=== PATIENT | male | born 1970 | race Caucasian/White ===

== ENCOUNTER 2016-04-17 01:25 | Inpatient (IN) | payer BC, OTHER ==
[2016-04-17 01:43] VITALS: BMI 30.2
[2016-04-17] MEDS ORDERED: dilTIAZem HCL 50 MG/10 ML - 10 ML VIAL ONE (01:52)
[2016-04-17] MEDS ORDERED: SODIUM CHLORIDE 0.9% 500 ML INFUS.BAG IV ONE ×2 (01:54→03:24)
[2016-04-17] MEDS ORDERED: dilTIAZem HCL 50 MG/10 ML - 10 ML VIAL IVPUSH ONE ×4 (01:54→13:30)
--- NOTE | 2016-04-17 01:54 | PDOC ---
History of Present Illness - General History Source: Patient - History of Present Illness Initial Comments: 04/17/16 03:35 The patient is a 45 year old male with a PMHx of HTN, HLD who presents to the ED with an irregular heart beat and chest pain tonight. reports the patient was drinking alcohol and ate pasta and meatballs. Patient woke up about an hour ago with palpitations. Patient reports that he has been in A-Fib in and out, but goes out of it easily. He reports an episode of vertigo last week. states he has had difficulty breathing lately. PCP: Dr. Subhash Aden <Bibi Adams - Last Filed: 04/17/16 05:07> <Fina Connell - Last Filed: 04/19/16 16:47> - General Chief Complaint: Irregular Heart Beat Stated Complaint: CHEST PAIN Time Seen by Provider: 04/17/16 01:49 Past History <Bibi Adams - Last Filed: 04/17/16 05:07> - Psycho/Social/Smoking Cessation Hx Suicidal Ideation: No Smoking History: Unknown if ever smoked <Fina Connell - Last Filed: 04/19/16 16:47> - Past Medical History Allergies/Adverse Reactions: Allergies Allergy/AdvReac Type Severity Reaction Status Date / Time No Known Allergies Allergy Verified 09/18/15 10:18 Home Medications: Ambulatory Orders Quinapril HCl [Accupril -] 20 mg PO DAILY 09/01/12 Rosuvastatin Calcium [Crestor] 10 mg PO HS 09/01/12 [place]-3 Acid Ethyl Esters [Lovaza -] 2,000 mg PO BID 02/27/14 Omeprazole 40 mg PO DAILY 04/17/16 Acetaminophen [Tylenol .Regular Strength -] 650 mg PO Q4H PRN #0 tablet Apixaban [Eliquis -] 5 mg PO BID #60 tablet 04/19/16 Diltiazem Cd [Cardizem Cd -] 180 mg PO DAILY #30 cap.cd.24h 04/19/16 Prednisone [Deltasone -] 20 mg PO DAILY #6 tablet 04/19/16 Review of Systems - Review of Systems Comments:: 04/17/16 03:35 GENERAL/CONSTITUTIONAL: No fever or chills. No weakness. HEAD, EYES, EARS, NOSE AND THROAT: No change in vision. No ear pain or discharge. No sore throat. CARDIOVASCULAR: + chest pain, shortness of breath, palpitations. RESPIRATORY: No cough, wheezing, or hemoptysis. GASTROINTESTINAL: No nausea, vomiting, diarrhea or constipation. GENITOURINARY: No dysuria, frequency, or change in urination. MUSCULOSKELETAL: No joint or muscle swelling or pain. No neck or back pain. SKIN: No rash NEUROLOGIC: + vertigo. No headache, loss of consciousness, or change in strength /sensation. ENDOCRINE: No increased thirst. No abnormal weight change. HEMATOLOGIC/LYMPHATIC: No anemia, easy bleeding, or history of blood clots. ALLERGIC/IMMUNOLOGIC: No hives or skin allergy. <Bibi Adams - Last Filed: 04/17/16 05:07> *Physical Exam - Vital Signs Last Vital Signs Temp Pulse Resp BP Pulse Ox 97.3 F L 57 L 17 123/99 98 04/17/16 01:41 04/17/16 01:41 04/17/16 01:41 04/17/16 01:41 04/17/16 01:41 - Physical Exam Comments: 04/17/16 03:36 GENERAL: Awake, alert, and fully oriented, in no acute distress HEAD: No signs of trauma EYES: PERRLA, EOMI, sclera anicteric, conjunctiva clear ENT: Auricles normal inspection, hearing grossly normal, nares patent, oropharynx clear without exudates. Moist mucosa NECK: Normal ROM, supple, no lymphadenopathy, JVD, or masses LUNGS: Breath sounds equal, clear to auscultation bilaterally. No wheezes, and no crackles HEART: irregularly irregular rate and rhythm, normal S1 and S2, no murmurs, rubs or gallops ABDOMEN: Soft, nontender, normoactive bowel sounds. No guarding, no rebound. No masses EXTREMITIES: Normal range of motion, no edema. No clubbing or cyanosis. No cords, erythema, or tenderness NEUROLOGICAL: Cranial nerves II through XII grossly intact. Normal speech, normal gait SKIN: Warm, Dry, normal turgor, no rashes or lesions noted. <Bibi Adams - Last Filed: 04/17/16 05:07> - Vital Signs Last Vital Signs Temp Pulse Resp BP Pulse Ox 97.3 F L 57 L 17 123/99 98 04/17/16 01:41 04/17/16 01:41 04/17/16 01:41 04/17/16 01:41 04/17/16 01:41 <Fina Connell - Last Filed: 04/19/16 16:47> ED Treatment Course - LABORATORY CBC & Chemistry Diagram: 04/17/16 02:00 04/17/16 02:00 - ADDITIONAL ORDERS Additional order review: Laboratory Results 04/17/16 04/17/16 04/17/16 02:00 02:00 02:00 INR 0.95 Sodium 143 Potassium 3.6 Chloride 107 Carbon Dioxide 20 L Anion Gap 16 BUN 21 H Creatinine 1.5 H Creat Clearance w eGFR 50.84 Random Glucose 123 H Calcium 8.9 Total Bilirubin 0.6 AST 34 ALT 89 H Alkaline Phosphatase 74 Total Protein 7.5 Albumin 4.0 Lipase 139 Alcohol, Quantitative 39.4 H* 04/17/16 02:00 RBC 5.41 MCV 89.1 MCHC 34.5 RDW 13.4 MPV 9.1 Neutrophils % 61.8 Lymphocytes % 25.1 Monocytes % 10.1 Eosinophils % 2.0 Basophils % 1.0 <Bibi Adams - Last Filed: 04/17/16 05:07> - LABORATORY CBC & Chemistry Diagram: 04/18/16 05:38 04/18/16 05:38 <Fina Connell - Last Filed: 04/19/16 16:47> Medical Decision Making - Medical Decision Making 04/19/16 16:42 Pt comes with rapid afib. states that he was drinking heavily (however his blood alcohol level is 39 in the ER) and she states that the binge drinking sometimes starts his afib. He has had afib once a few months ago; at that time, he states that simple meds in the ER turned him around, and he went back into sinus rhythm. Pt and his tell me that he has not had an episode of afib since that time, however, he has had episodes of dizziness and vertigo. Pt is not responding to hydration and IV pushes of diltiazem. He was given an oral dose of dilt and he was admitted to his PMDs service. Dr. Toribio is aware of the patient. <Fina Connell - Last Filed: 04/19/16 16:47> *DC/Admit/Observation/Transfer - Attestations Scribe Attestion: 04/17/16 03:36 Documentation prepared by Bibi Adams, acting as medical education manager for Fina Connell MD. <Bibi Adams - Last Filed: 04/17/16 05:07> - Discharge Dispostion Admit: Yes <Fina Connell - Last Filed: 04/19/16 16:47> Diagnosis at time of Disposition: Rapid atrial fibrillation - Discharge Dispostion Disposition: HOME Condition at time of disposition: Improved - Prescriptions - Referrals
[2016-04-17 02:30] LABS: MCH 30.7 pg (25.7-33.7); MCHC 34.5 g/dl (32.0-35.9); MEAN CELL VOLUME 89.1 fl (80-96); MEAN PLT VOLUME 9.1 fl (7.5-11.1); NEUTROPHILS 61.8 % (42.8-82.8); PLATELET COUNT 275 K/MM3 (134-434); RDW 13.4 % (11.9-15.9); WHITE BLOOD COUNT 12.6 K/mm3 (4.0-10.0)
[2016-04-17 02:41] LABS: INR 0.95 (0.82-1.09); PROTHROMBIN TIME (PATIENT) 10.4 SEC (9.98-11.88)
[2016-04-17 02:49] LABS: BILIRUBIN,TOTAL 0.6 mg/dL (0.2-1.0); CALCIUM 8.9 mg/dL (8.5-10.1); CREATININE 1.5 mg/dL (0.7-1.3); TOT PROT 7.5 g/dl (6.4-8.2)
[2016-04-17] MEDS ORDERED: dilTIAZem HCL 60 MG TABLET (FP) ONE (05:10)
[2016-04-17] MEDS ORDERED: dilTIAZem HCL 60 MG TABLET (FP) PO ONE ×2 (05:12→13:30)
[2016-04-17] MEDS ORDERED: ACETAMINOPHEN 325 MG TABLET (FP) PO PRN (08:16)
[2016-04-17] MEDS: SODIUM CHLORIDE 1,000 ML IV SCH (09:06)
[2016-04-17 09:13] LABS: TROPONIN I < 0.02 ng/ml (0.00-0.05)
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
[2016-04-17] MEDS ORDERED: PANTOPRAZOLE 40 MG TABLET (FP) ONE (11:31)
[2016-04-17] MEDS ORDERED: METOPROLOL SUCCINATE 50 MG TAB.SR.24H (FP) ONE (11:31)
[2016-04-17] MEDS ORDERED: dilTIAZem HCL 30 MG TABLET (FP) ONE (11:32)
[2016-04-17] MEDS ORDERED: predniSONE 10 MG TABLET (UD) ONE ×2 (11:32→11:35)
[2016-04-17] MEDS: PANTOPRAZOLE 20 MG TABLET (FP) PO SCH (11:38)
[2016-04-17] MEDS: predniSONE 20 MG TABLET (UD) PO SCH (11:38)
[2016-04-17] MEDS: METOPROLOL SUCCINATE 50 MG TAB.SR.24H (FP) PO SCH (11:38)
[2016-04-17] MEDS: dilTIAZem HCL 30 MG TABLET (FP) PO SCH ×2 (11:39→11:41)
[2016-04-17] MEDS: ROSUVASTATIN CA 5 MG TABLET (FP) PO SCH (13:23)
[2016-04-17] MEDS: APIXABAN 5 MG TABLET PO SCH ×2 (13:23→21:26)
[2016-04-17 14:04] LABS: TROPONIN I < 0.02 ng/ml (0.00-0.05)
[2016-04-17] MEDS: OMEGA-3 ACID ETHYL ESTERS (FATTY-ACIDS) 1 GM CAPSULE (FP) PO SCH (14:30)
--- NOTE | 2016-04-17 14:58 | HP ---
Admitting History and Physical - Primary Care Physician PCP: Subhash Aden - Admission Chief Complaint: I have atrial fibrillation History of Present Illness: Mr Ring is a very pleasant 45 year old male who comes in after having palpitations. He says he was at dinner and was drinking alcohol last night. He has a previous history of having atrial fibrillation with rvr after consumption of alcohol. After having "a few cocktails" last night he developed palpitations. He says he felt his heart racing. He says he often feels his heart race after drinking, but normally it goes away. However this time his heart continued to race so he came in for further evaluation. He has shortness of breath with this, but he has a history of asthma and states this is unchanged. He denies lightheadedness, dizziness, passing out, chest pain, coughing, abdominal pain, nausea, vomiting, diarrhea, constipation, difficulty or pain on urination, or swelling. He received IV diltiazem in the ER which controlled his rate, however he is still feeling palpitations. History Source: Patient Limitations to Obtaining History: No Limitations - Past Medical History Cardiovascular: Yes: AFIB (paroxysmal), HTN, Hyperlipdemia - Past Surgical History Past Surgical History: Yes: None - Smoking History Smoking history: Unknown if ever smoked - Alcohol/Substance Use Hx Alcohol Use: Yes (12-15 drinks per week) History of Substance Use: reports: None - Social History Usual Living Arrangement: Yes: With Spouse ADL: Independent History of Recent Travel: No Home Medications - Allergies Allergies/Adverse Reactions: Allergies Allergy/AdvReac Type Severity Reaction Status Date / Time No Known Allergies Allergy Verified 04/17/16 05:38 - Home Medications Home Medications: Ambulatory Orders Fluticasone/Salmeterol [Advair 250-50 Diskus] 1 each IH BID 04/17/16 [place]-3 Acid Ethyl Esters [Lovaza] 1 gm PO QID 04/17/16 Omeprazole 40 mg PO DAILY 04/17/16 Prednisone [Deltasone -] 40 mg PO DAILY 04/17/16 Quinapril HCl [Accupril -] 20 mg PO DAILY 04/17/16 Rosuvastatin Calcium [Crestor] 10 mg PO DAILY 04/17/16 Family Disease History - Family Disease History Family Disease History: Heart Disease: Mother (CHF) Review of Systems Findings/Remarks: Full review of systems obtained, as per HPI and otherwise negative Physical Examination Vital Signs: Vital Signs Temperature 98.1 F 04/17/16 14:37 Pulse Rate 113 H 04/17/16 14:37 Respiratory Rate 20 04/17/16 14:37 Blood Pressure 115/79 04/17/16 14:37 O2 Sat by Pulse Oximetry (%) 97 04/17/16 11:26 Constitutional: Yes: No Distress, Calm, Obese Eyes: Yes: Conjunctiva Clear, EOM Intact HENT: Yes: Atraumatic, Normocephalic Cardiovascular: Yes: Pulse Irregular. No: Tachycardia, Gallop, Murmur, Rub Respiratory: Yes: Regular, CTA Bilaterally. No: Rales, Rhonchi, Wheezes Gastrointestinal: Yes: Normal Bowel Sounds, Soft. No: Distention, Tenderness Extremities: Yes: WNL Edema: No Labs: Laboratory Results - last 24 hr 04/17/16 04/17/16 04/17/16 02:00 02:00 02:00 WBC 12.6 H RBC 5.41 Hgb 16.6 Hct 48.1 MCV 89.1 MCHC 34.5 RDW 13.4 Plt Count 275 MPV 9.1 Neutrophils % 61.8 Lymphocytes % 25.1 Monocytes % 10.1 Eosinophils % 2.0 Basophils % 1.0 INR 0.95 Sodium 143 Potassium 3.6 Chloride 107 Carbon Dioxide 20 L Anion Gap 16 BUN 21 H Creatinine 1.5 H Creat Clearance w eGFR 50.84 Random Glucose 123 H Calcium 8.9 Total Bilirubin 0.6 AST 34 ALT 89 H Alkaline Phosphatase 74 Creatine Kinase Creatine Kinase Index CK-MB (CK-2) CK-MB (CK-2) Rel Index Troponin I Total Protein 7.5 Albumin 4.0 Lipase 139 Alcohol, Quantitative 04/17/16 04/17/16 04/17/16 02:00 03:20 03:20 WBC RBC Hgb Hct MCV MCHC RDW Plt Count MPV Neutrophils % Lymphocytes % Monocytes % Eosinophils % Basophils % INR Sodium Potassium Chloride Carbon Dioxide Anion Gap BUN Creatinine Creat Clearance w eGFR Random Glucose Calcium Total Bilirubin AST ALT Alkaline Phosphatase Creatine Kinase 255 Creatine Kinase Index 1.9 CK-MB (CK-2) 4.733 H CK-MB (CK-2) Rel Index Cancelled Troponin I < 0.02 Total Protein Albumin Lipase Alcohol, Quantitative 39.4 H* 04/17/16 13:25 WBC RBC Hgb Hct MCV MCHC RDW Plt Count MPV Neutrophils % Lymphocytes % Monocytes % Eosinophils % Basophils % INR Sodium Potassium Chloride Carbon Dioxide Anion Gap BUN Creatinine Creat Clearance w eGFR Random Glucose Calcium Total Bilirubin AST ALT Alkaline Phosphatase Creatine Kinase 163 D Creatine Kinase Index CK-MB (CK-2) CK-MB (CK-2) Rel Index Troponin I < 0.02 Total Protein Albumin Lipase Alcohol, Quantitative Imaging - Results Chest X-ray: Report Reviewed, Image Reviewed EKG: Image Reviewed Problem List - Problems (1) Atrial fibrillation with RVR Assessment/Plan: -patient rate controlled, but still symptomatic -cardiology saw patient in consultation -started on diltiazem -started on toprol -anticoagulation with eliquis -? possible cardioversion tomorrow Code(s): I48.91 - UNSPECIFIED ATRIAL FIBRILLATION (2) HTN (hypertension) Assessment/Plan: -will stop quinapril -placed on metoprolol and diltiazem Code(s): I10 - ESSENTIAL (PRIMARY) HYPERTENSION (3) HLD (hyperlipidemia) Assessment/Plan: -continue lovaza Code(s): E78.5 - HYPERLIPIDEMIA, UNSPECIFIED (4) Asthma Assessment/Plan: -continue prednisone Code(s): J45.909 - UNSPECIFIED ASTHMA, UNCOMPLICATED
[2016-04-17] MEDS ORDERED: METOPROLOL SUCCINATE 50 MG TAB.SR.24H (FP) PO STA (16:03)
[2016-04-17] MEDS: dilTIAZem HCL 60 MG TABLET (FP) PO SCH (21:26)
[2016-04-18 06:29] LABS: BASOPHIL 0.1 % (0-2.0); EOSINOPHIL 0.8 % (0-4.5); MCH 30.8 pg (25.7-33.7); MCHC 34.4 g/dl (32.0-35.9); MEAN CELL VOLUME 89.6 fl (80-96); MEAN PLT VOLUME 8.6 fl (7.5-11.1); NEUTROPHILS 70.6 % (42.8-82.8); PLATELET COUNT 220 K/MM3 (134-434); RDW 13.5 % (11.9-15.9); WHITE BLOOD COUNT 14.5 K/mm3 (4.0-10.0)
[2016-04-18] MEDS: dilTIAZem HCL 60 MG TABLET (FP) PO SCH ×3 (06:41→21:15)
[2016-04-18 06:58] LABS: CREATININE 1.3 mg/dL (0.7-1.3); MAGNESIUM 2.4 mg/dL (1.8-2.4); PHOSPHOROUS 3.4 mg/dL (2.5-4.9)
[2016-04-18] MEDS: SODIUM CHLORIDE 1,000 ML IV SCH (09:00)
--- NOTE | 2016-04-18 09:21 | PN ---
Progress Note, Physician Chief Complaint: afob History of Present Illness: no more palpitations this am; no sob, cp, presyncope - Current Medication List Current Medications: Active Medications Acetaminophen (Tylenol -) 650 mg PO Q4H PRN PRN Reason: FEVER OR PAIN Apixaban (Eliquis -) 5 mg PO BID [facility] Last Admin: 04/17/16 21:26 Dose: 5 mg Diltiazem HCl (Cardizem -) 60 mg PO TID [facility] Last Admin: 04/18/16 06:41 Dose: 60 mg Sodium Chloride (Normal Saline -) 1,000 mls @ 75 mls/hr IV ASDIR [facility] Last Admin: 04/17/16 09:06 Dose: 75 mls/hr Metoprolol Succinate (Toprol Xl -) 50 mg PO DAILY [facility] Last Admin: 04/17/16 11:38 Dose: 50 mg Ozavz-2-Nucv Ethyl Esters (Lovaza -) 1 gm PO DAILY [facility] Last Admin: 04/17/16 14:30 Dose: Not Given Pantoprazole Sodium (Protonix -) 20 mg PO DAILY [facility] Last Admin: 04/17/16 11:38 Dose: 20 mg Prednisone (Deltasone -) 40 mg PO DAILY [facility] Last Admin: 04/17/16 11:38 Dose: 40 mg Rosuvastatin Calcium (Crestor -) 5 mg PO DAILY [facility] Last Admin: 04/17/16 13:23 Dose: 5 mg - Objective Vital Signs: Vital Signs Temperature 97.5 F L 04/18/16 06:00 Pulse Rate 90 04/18/16 06:00 Respiratory Rate 20 04/18/16 06:00 Blood Pressure 138/86 04/18/16 06:00 O2 Sat by Pulse Oximetry (%) 99 04/17/16 22:00 Constitutional: Yes: Well Nourished, No Distress, Calm Cardiovascular: Yes: Pulse Irregular, S1, S2. No: Gallop, Murmur Respiratory: Yes: Regular, CTA Bilaterally. No: Accessory Muscle Use, Rales, Wheezes Edema: No Neurological: Yes: Alert, Oriented Psychiatric: No: Agitated Labs: CBC, BMP 04/18/16 05:38 04/18/16 05:38 INR, PTT INR 0.95 (0.82-1.09) 04/17/16 02:00 - ....Imaging EKG: Other (tele: AF with controlled HRs since yest 5pm) Assessment/Plan rapid AFib, paroxysmal: -episode triggered by etoh binge few years ago--had not curtailed etoh since then per my recs, now again same setting -? FIORDALIZA contributing as well--as disc'd below -HR rapid on DOA, requiring dilt 60 TID and toprol 50 x2--well controlled since -he is now asymptomatic at rest with good HR control -d/w'd pt options of TO/DCCV today vs observe as outpt for sx's, and see if reverts to sinus on his own; disc'd absence of proof of benefit for sinus rhythm strategy but also advised the limitations of those studies being done largely in older populations, and some signals of possibly higher chf or dementia risk with permanent AF--he wishes to proceed with DCCV, understanding all R/B -TSH normal -CHADS VASC 1 (HTN) -for ASA only given risks of occupational-related head trauma (see prior note), though he states he can safely avoid this line of work for brief period to tolerate 4-6 wks of AC post-DCCV -started eliquis 5 bid yesterday--will continue as outpt for now -unclear which med he responded to better for HRs--probably diltiazem--plan to cont CD 180mg qd as outpt -for TO/DCCV today -will see me in office in 2-3 wks -etoh role in his AF was reviewed, and he was counselled to stop or cut back significantly -FIORDALIZA tx optimization also discussed--advised to consider repeat sleep study and consider ENT surgery if dental appliance is not optimally controlling his apneas -nonsp ST changes on ekg likely rate/rhythm-related, no angina sx's (incl with vigorous exercise at home), trop neg x 2 -stress test 3 yrs ago neg for AF, no need for rpt ischemia eval at this time TOMER: -creat 1.5 on admit, down to 1.3 today -likely sec to etoh binge with vol depletion HTN: -well controlled on home MICHAEL with addition of BB and CCB here -observe trend for low bp's on incr'd rx regimen HPL: -cont home rosuvastatin FIORDALIZA: -intol of FM and nasal CPAP in past -had mandibular advancement mouthepiece made by specialists, uses it consistently--sx's greatly improved but not resolved -as above etoh use: -as above
[2016-04-18] MEDS: PANTOPRAZOLE 20 MG TABLET (FP) PO SCH (09:50)
[2016-04-18] MEDS: ROSUVASTATIN CA 5 MG TABLET (FP) PO SCH (09:50)
[2016-04-18] MEDS: predniSONE 20 MG TABLET (UD) PO SCH (09:50)
[2016-04-18] MEDS: APIXABAN 5 MG TABLET PO SCH ×2 (09:50→21:16)
[2016-04-18] MEDS: METOPROLOL SUCCINATE 50 MG TAB.SR.24H (FP) PO SCH (09:51)
[2016-04-18] MEDS: OMEGA-3 ACID ETHYL ESTERS (FATTY-ACIDS) 1 GM CAPSULE (FP) PO SCH (09:51)
--- NOTE | 2016-04-18 12:14 | EKG ---
Test Reason : Blood Pressure : / mmHG Vent. Rate : 171 BPM Atrial Rate : 170 BPM P-R Int : 000 ms QRS Dur : 088 ms QT Int : 294 ms P-R-T Axes : 000 045 -64 degrees QTc Int : 495 ms ATRIAL FIBRILLATION WITH RAPID VENTRICULAR RESPONSE ABNORMAL ECG NO PREVIOUS ECGS AVAILABLE Confirmed by NATHAN MARCANO MD ([id number]) on 04/18/2016 12:13:56 PM Referred By: Confirmed By:NATHAN MARCANO MD
[2016-04-18] MEDS ORDERED: PROPOFOL 20 ML ONE ×2 (13:50)
--- NOTE | 2016-04-18 14:28 | PN ---
Progress Note, Physician Chief Complaint: Mr Ring is without complaint. No cp, sob, n/v. - Current Medication List Current Medications: Active Medications Acetaminophen (Tylenol -) 650 mg PO Q4H PRN PRN Reason: FEVER OR PAIN Apixaban (Eliquis -) 5 mg PO BID [facility] Last Admin: 04/18/16 09:50 Dose: 5 mg Diltiazem HCl (Cardizem -) 60 mg PO TID [facility] Last Admin: 04/18/16 13:07 Dose: 60 mg Sodium Chloride (Normal Saline -) 1,000 mls @ 75 mls/hr IV ASDIR [facility] Last Admin: 04/18/16 09:00 Dose: 75 mls/hr Metoprolol Succinate (Toprol Xl -) 50 mg PO DAILY [facility] Last Admin: 04/18/16 09:51 Dose: Not Given [place]-9-Isdo Ethyl Esters (Lovaza -) 1 gm PO DAILY [facility] Last Admin: 04/18/16 09:51 Dose: Not Given Pantoprazole Sodium (Protonix -) 20 mg PO DAILY [facility] Last Admin: 04/18/16 09:50 Dose: 20 mg Prednisone (Deltasone -) 40 mg PO DAILY [facility] Last Admin: 04/18/16 09:50 Dose: 40 mg Rosuvastatin Calcium (Crestor -) 5 mg PO DAILY [facility] Last Admin: 04/18/16 09:50 Dose: 5 mg - Objective Vital Signs: Vital Signs Temperature 98.2 F 04/18/16 10:00 Pulse Rate 84 04/18/16 10:00 Respiratory Rate 20 04/18/16 10:00 Blood Pressure 138/100 04/18/16 10:00 O2 Sat by Pulse Oximetry (%) 99 04/18/16 10:00 Constitutional: Yes: No Distress, Calm, Obese Cardiovascular: Yes: Pulse Irregular. No: Gallop, Murmur, Rub Respiratory: Yes: Regular, CTA Bilaterally. No: Rales, Rhonchi, Wheezes Gastrointestinal: Yes: Normal Bowel Sounds, Soft. No: Distention, Tenderness Extremities: Yes: WNL Edema: No Labs: CBC, BMP 04/18/16 05:38 04/18/16 05:38 INR, PTT INR 0.95 (0.82-1.09) 04/17/16 02:00 Assessment/Plan (1) Atrial fibrillation with RVR Assessment/Plan: -rate controlled -plan for TO and DCCV today Code(s): I48.91 - UNSPECIFIED ATRIAL FIBRILLATION (2) HTN (hypertension) Assessment/Plan: -continue metoprolol and diltiazem Code(s): I10 - ESSENTIAL (PRIMARY) HYPERTENSION (3) HLD (hyperlipidemia) Assessment/Plan: -continue lovaza Code(s): E78.5 - HYPERLIPIDEMIA, UNSPECIFIED (4) Asthma Assessment/Plan: -continue prednisone Code(s): J45.909 - UNSPECIFIED ASTHMA, UNCOMPLICATED Dispo -cardioversion today
--- NOTE | 2016-04-18 15:11 | PROC ---
Cardioversion Indication: Atrial fibrillation Risks and Benefits Explained: Yes Consent on Chart: Yes TO done prior to Cardioversion: Yes (No thrombus) Patient anticoagulated: Yes (jess) - Procedure Anesthesiologist present: Yes Medication given: propofol sedation Joules delivered: 120 J Rhythm post cardioversion: Sinus rhythm, HR 70's. Remarks: Successful cardioversion of atrial fibrillation rhythm to sinus rhythm. No complications.
--- NOTE | 2016-04-18 16:11 | EKG ---
Test Reason : Blood Pressure : / mmHG Vent. Rate : 069 BPM Atrial Rate : 069 BPM P-R Int : 146 ms QRS Dur : 088 ms QT Int : 392 ms P-R-T Axes : 052 009 022 degrees QTc Int : 420 ms NORMAL SINUS RHYTHM MINIMAL VOLTAGE CRITERIA FOR LVH, MAY BE NORMAL VARIANT BORDERLINE ECG WHEN COMPARED WITH ECG OF 01-SEP-2012 10:58, SINUS RHYTHM HAS REPLACED ATRIAL FIBRILLATION Confirmed by CAT KENNEY, CARIDAD ([id number]) on 04/18/2016 4:11:43 PM Referred By: SYED DOWNS Confirmed By:CARIDAD SHELTON MD
[2016-04-18] MEDS ORDERED: dilTIAZem HCL 60 MG TABLET (FP) PO SCH (22:09)
[2016-04-19] MEDS: SODIUM CHLORIDE 1,000 ML IV SCH (07:49)
[2016-04-19] MEDS ORDERED: PT OWN MED DRAWER 7, Y5N ONE (09:47)
--- NOTE | 2016-04-19 09:47 | PN ---
Progress Note (short form) - Note Progress Note: Chief Complaint: afob History of Present Illness: Had successful TO/CV yesterday. no sob, cp, presyncope, palps Current Medications Acetaminophen (Tylenol -) 650 mg PO Q4H PRN PRN Reason: FEVER OR PAIN Apixaban (Eliquis -) 5 mg PO BID [facility] Last Admin: 04/18/16 21:16 Dose: 5 mg Diltiazem HCl (Cardizem Cd -) 180 mg PO DAILY [facility] Sodium Chloride (Normal Saline -) 1,000 mls @ 75 mls/hr IV ASDIR [facility] Last Admin: 04/19/16 07:49 Dose: 75 mls/hr Ccmaw-1-Ifil Ethyl Esters (Lovaza -) 1 gm PO DAILY [facility] Last Admin: 04/18/16 09:51 Dose: Not Given Pantoprazole Sodium (Protonix -) 20 mg PO DAILY [facility] Last Admin: 04/18/16 09:50 Dose: 20 mg Prednisone (Deltasone -) 40 mg PO DAILY [facility] Last Admin: 04/18/16 09:50 Dose: 40 mg Rosuvastatin Calcium (Crestor -) 5 mg PO DAILY [facility] Last Admin: 04/18/16 09:50 Dose: 5 mg Vital Signs - 24 hr 04/18/16 04/18/16 04/18/16 10:00 14:42 14:57 Temperature 98.2 F 98 F Pulse Rate 84 74 70 Respiratory 20 18 18 Rate Blood Pressure 138/100 100/58 106/66 O2 Sat by Pulse 99 95 97 Oximetry (%) 04/18/16 04/18/16 04/18/16 15:10 15:23 16:40 Temperature 97.9 F Pulse Rate 70 67 79 Respiratory 18 18 20 Rate Blood Pressure 119/96 119/76 134/88 O2 Sat by Pulse 98 97 Oximetry (%) 04/18/16 04/19/16 04/19/16 22:00 02:00 06:00 Temperature 98.4 F 98.2 F 97.7 F Pulse Rate 82 82 90 Respiratory 20 20 20 Rate Blood Pressure 131/90 135/89 147/92 O2 Sat by Pulse 97 Oximetry (%) Intake & Output 04/17/16 04/18/16 04/19/16 04/20/16 07:59 07:59 07:59 07:59 Intake Total 1555 1820 Balance 1555 1820 Weight 255 lb 255 lb Constitutional: Yes: Well Nourished, No Distress, Calm Cardiovascular: Yes: rrr, S1, S2. No: Gallop, Murmur Respiratory: Yes: Regular, CTA Bilaterally. No: Accessory Muscle Use, Rales, Wheezes Edema: No Neurological: Yes: Alert, Oriented Psychiatric: No: Agitated Labs: no CBC, BMP today - ....Imaging EKG: Other (tele: SR overnight) Assessment/Plan rapid AFib, paroxysmal: -episode triggered by etoh binge few years ago--had not curtailed etoh since then per my recs, now again same setting -? FIORDALIZA contributing as well--as disc'd below -HR rapid on DOA, requiring dilt 60 TID and toprol 50 x2--well controlled since -he is now asymptomatic at rest with good HR control -d/w'd pt options of TO/DCCV today vs observe as outpt for sx's, and see if reverts to sinus on his own; disc'd absence of proof of benefit for sinus rhythm strategy but also advised the limitations of those studies being done largely in older populations, and some signals of possibly higher chf or dementia risk with permanent AF--he wishes to proceed with DCCV, understanding all R/B -TSH normal -CHADS VASC 1 (HTN) -for ASA only given risks of occupational-related head trauma (see prior note), though he states he can safely avoid this line of work for brief period to tolerate 4-6 wks of AC post-DCCV -started eliquis 5 bid --will continue as outpt for now -unclear which med he responded to better for HRs--probably diltiazem--plan to cont CD 180mg qd as outpt -s/p successful TO/DCCV 04/18 -will see me in office in 2-3 wks -etoh role in his AF was reviewed, and he was counselled to stop or cut back significantly -FIORDALIZA tx optimization also discussed--advised to consider repeat sleep study and consider ENT surgery if dental appliance is not optimally controlling his apneas -nonsp ST changes on ekg likely rate/rhythm-related, no angina sx's (incl with vigorous exercise at home), trop neg x 2 -stress test 3 yrs ago neg for AF, no need for rpt ischemia eval at this time TOMER: -creat 1.5 on admit, down to 1.3 -likely sec to etoh binge with vol depletion, s/p IVF HTN: -well controlled on home MICHAEL with addition of BB and CCB here -observe trend for low bp's on incr'd rx regimen. - transitioned to long acting dilitazem. Will resume home quinapril 20 mg/day. - Recommend discharging patient with home blood pressure cuff if possible, for home blood pressure monitoring. HPL: -cont home rosuvastatin FIORDALIZA: -intol of FM and nasal CPAP in past -had mandibular advancement mouthepiece made by specialists, uses it consistently--sx's greatly improved but not resolved -as above etoh use: -as above
[2016-04-19] MEDS: APIXABAN 5 MG TABLET PO SCH (09:53)
[2016-04-19] MEDS: PANTOPRAZOLE 20 MG TABLET (FP) PO SCH (09:53)
[2016-04-19] MEDS: ROSUVASTATIN CA 5 MG TABLET (FP) PO SCH (09:53)
[2016-04-19] MEDS: OMEGA-3 ACID ETHYL ESTERS (FATTY-ACIDS) 1 GM CAPSULE (FP) PO SCH (09:54)
[2016-04-19] MEDS: predniSONE 20 MG TABLET (UD) PO SCH (09:54)
[2016-04-19 09:58] VITALS: BP 142/97; PULSE 80; TEMP 98.3
[2016-04-19] MEDS ORDERED: QUINAPRIL HCL 20 MG TABLET (FP) PO SCH (11:00)
[2016-04-19] MEDS ORDERED: predniSONE 20 MG TABLET (UD) PO SCH (15:21)
--- NOTE | 2016-04-19 15:47 | DS ---
Physical Examination Vital Signs: Vital Signs Temperature 98.3 F 04/19/16 09:57 Pulse Rate 80 04/19/16 09:57 Respiratory Rate 20 04/19/16 09:57 Blood Pressure 142/97 04/19/16 09:57 O2 Sat by Pulse Oximetry (%) 99 04/19/16 09:50 Constitutional: Yes: Calm Neck: Yes: Supple Cardiovascular: Yes: Regular Rate and Rhythm Respiratory: No: Wheezes Edema: No Neurological: Yes: Alert, Oriented Labs: CBC, BMP 04/18/16 05:38 04/18/16 05:38 Discharge Summary Reason For Visit: RAPID ATRIAL FIBRILIATION Current Active Problems Asthma (Acute) Atrial fibrillation with RVR (Acute) HLD (hyperlipidemia) (Acute) HTN (hypertension) (Acute) Rapid atrial fibrillation (Acute) Procedures: Principal: TO; EKG and Cardiac Monitoring Other Procedures: Followup Cardiology visit; CXR; Lab Hospital Course: Improved to NSR after Rx. Asthma cleared. Condition: Improved - Instructions Diet, Activity, Other Instructions: No added salt Hold off on Advair Inhaler for a few days then resume as before. Use Albuterol if Asthma recurs and a supply of prednisone was sent to [facility]. Please See Cardiology and Dr. Aden within 1-2 weeks; Ask for appt same day if possible. No Motrin while on Eliquis. Referrals: Subhash Aden MD [Primary Care Provider] - Orlando Ravi MD [Staff Physician] - Disposition: HOME - Home Medications Comprehensive Discharge Medication List: Ambulatory Orders Quinapril HCl [Accupril -] 20 mg PO DAILY 09/01/12 Rosuvastatin Calcium [Crestor] 10 mg PO HS 09/01/12 [place]-3 Acid Ethyl Esters [Lovaza -] 2,000 mg PO BID 02/27/14 Omeprazole 40 mg PO DAILY 04/17/16 Acetaminophen [Tylenol .Regular Strength -] 650 mg PO Q4H PRN #0 tablet Apixaban [Eliquis -] 5 mg PO BID #60 tablet 04/19/16 Diltiazem Cd [Cardizem Cd -] 180 mg PO DAILY #30 cap.cd.24h 04/19/16 Prednisone [Deltasone -] 20 mg PO DAILY #6 tablet 04/19/16
== END 2016-04-19 15:58 | disposition home or self-care (01) | DRG 309 ==
LOC: JER 01:25 → JERBED 05:32 → MERGE 05:32 → UNDOADMIN 05:38 → JERBED 05:38 → J4S 12:40
PROVIDERS: ADMIT Internal Medicine Geriatric Medicine; ATTEND Internal Medicine Geriatric Medicine
PROC: 5A2204Z Restoration of Cardiac Rhythm, Single (ICD-10-PCS; principal; 2016-04-18 14:00)
DX: I48.0 Paroxysmal atrial fibrillation (principal); N17.9 Acute kidney failure, unspecified; I10 Essential (primary) hypertension; E78.5 Hyperlipidemia, unspecified; J45.909 Unspecified asthma, uncomplicated; G47.33 Obstructive sleep apnea (adult) (pediatric); F10.10 Alcohol abuse, uncomplicated
CPT/HCPCS: 36415; 71010-TC; 80048; 80053; 80061; 80307; 82550; 82553; 83690; 83721; 83735; 84100; 84443; 84484; 85025; 85610; 93005; 93010; 93312; 93325; 99285-25

== ENCOUNTER 2016-12-14 09:39 | Emergency (ER) | payer OTHER, BC ==
[2016-12-14 09:47] VITALS: BP 108/74; PULSE 73; TEMP 98.4; BMI 29.5
--- NOTE | 2016-12-14 10:52 | PDOC ---
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 Able to ambulate without difficulty with reproducible pain. Denies falling, denies any other injury. REVIEW OF SYSTEMS: GENERAL: Afebrile, A&O x3 RESPIRATORY: No cough, wheezing, or hemoptysis. CARDIAC: No CP or SOB MUSCULOSKELETAL: Pain to left lateral knee SKIN : No erythema, no edema, no bruising, no deformity. NEUROLOGICAL: Denies any numbness or tingling. PHYSICAL EXAM: GENERAL: The patient is awake, alert, and fully oriented, in no acute distress. HEAD: Normal with no signs of trauma. RESPIRATORY: Lungs clear bilaterally no rhonchi, rales, or wheezes CARDIAC: S1-S2 audible, no murmur rub or gallop EXTREMITIES: There is good range of motion to left knee with associated pain, no fluid appreciated, no bulge sign. No pain to superior or inferior patella. Negative drop test. Negative posterior leg test. No joint laxity noted, no ecchymosis, no deformity, no abrasions ,no edema. +3 popliteal pulse. Negative Homans sign. No calf pain or tenderness, no erythema or edema. MUSCULOSKELETAL: No spinal point tenderness. SKIN: Warm, Dry, normal turgor, no erythema, no edema no bruising. Past History - Past Medical History Allergies/Adverse Reactions: Allergies Allergy/AdvReac Type Severity Reaction Status Date / Time No Known Allergies Allergy Verified 12/14/16 09:47 Home Medications: Ambulatory Orders Quinapril HCl [Accupril -] 20 mg PO DAILY 09/01/12 Rosuvastatin Calcium [Crestor] 10 mg PO HS 09/01/12 [place]-3 Acid Ethyl Esters [Lovaza -] 2,000 mg PO BID 02/27/14 Omeprazole 40 mg PO DAILY 04/17/16 Apixaban [Eliquis -] 5 mg PO BID #60 tablet 04/19/16 Diltiazem Cd [Cardizem Cd -] 180 mg PO DAILY #30 cap.cd.24h 04/19/16 Asthma: Yes HTN: Yes Hypercholesterolemia: Yes - Immunization History Td Vaccination: Yes (WITHIN 7 YEARS) - Suicide/Smoking/Psychosocial Hx Smoking Status: No Smoking History: Never smoked Have you smoked in the past 12 months: No Number of Cigarettes Smoked Daily: 0 Information on smoking cessation initiated: No Hx Alcohol Use: Yes Drug/Substance Use Hx: No Substance Use Type: None *Physical Exam - Vital Signs Last Vital Signs Temp Pulse Resp BP Pulse Ox 98.4 F 73 14 108/74 95 12/14/16 09:44 12/14/16 09:44 12/14/16 09:44 12/14/16 09:44 12/14/16 09:44 ED Treatment Course - RADIOLOGY Radiology Studies Ordered: Category Date Time Status KNEE 3 POS-LEFT [RAD] Stat Radiology 12/14/16 09:58 Completed Medical Decision Making - Medical Decision Making 12/14/16 10:50 /P: Patient with left lateral knee injury, x-ray was sent negative for acute injury or effusion noted with arthritis, to follow-up with orthopedics if pain persists. *DC/Admit/Observation/Transfer Diagnosis at time of Disposition: Knee injury Qualifiers: Encounter type: initial encounter Laterality: left Qualified Code(s): S89.92XA - Unspecified injury of left lower leg, initial encounter; S89.92XA - Unspecified injury of left lower leg, initial encounter - Discharge Dispostion Disposition: HOME Condition at time of disposition: Good Admit: No - Referrals Referrals: Pravin Jones MD [Staff Physician] - - Patient Instructions Printed Discharge Instructions: Knee Sprain Additional Instructions: Recommend follow-up with orthopedics if pain persists Motrin for pain Follow up with occupational medicine if time off
== END 2016-12-14 10:54 | disposition home or self-care (01) ==
LOC: JERFT 09:39
DX: S89.92XA Unspecified injury of left lower leg, initial encounter (principal); Y35.891A Legal intervention involving other specified means, law enforcement official injured, initial encounter; Y93.89 Activity, other specified; Y92.9 Unspecified place or not applicable; Y99.0 Civilian activity done for income or pay; J45.909 Unspecified asthma, uncomplicated; I10 Essential (primary) hypertension; E78.00 Pure hypercholesterolemia, unspecified
CPT/HCPCS: 73562-TC-LT; 99281-25

== ENCOUNTER 2017-07-24 13:47 | Observation (INO) | payer BC, OTHER ==
[2017-07-24] MEDS ORDERED: CEFAZOLIN 2 GM in DEXTROSE 5%-WATER - 50 ML IVPB ONE (14:18)
--- NOTE | 2017-07-24 14:23 | PDOC ---
History of Present Illness <Kathe Green - Last Filed: 07/24/17 17:34> - General History Source: Patient Exam Limitations: No Limitations - History of Present Illness Initial Comments: 07/24/17 14:20 46y M hx of pafib (on ASA), hyperlipidemia, gerd, presents sp fall. Pt notes he was standing on a wooden fenc ewhen it broke and a peice of wood broke into his abdomen. pt notes some mild pain in his R thigh as well, denies head injury, loc , back pain, upper extremity pain. pt denies any fever/chills,n/v, constipation, cp, sob, cough, palpitations, lighheadedness, urinary symptoms. <Bill Khan - Last Filed: 07/24/17 19:27> - General Chief Complaint: Injury Stated Complaint: FALL FROM LADDER PIECE OF WOOD TO ABDOMEN Time Seen by Provider: 07/24/17 13:51 Past History <Kathe Green - Last Filed: 07/24/17 17:34> - Past Medical History Asthma: Yes Cardiac Disorders: Yes (A FIB) COPD: No HTN: Yes Hypercholesterolemia: Yes - Immunization History Td Vaccination: Yes (WITHIN 7 YEARS) Immunization Up to Date: Yes - Suicide/Smoking/Psychosocial Hx Smoking Status: No Smoking History: Never smoked Have you smoked in the past 12 months: No Number of Cigarettes Smoked Daily: 0 Information on smoking cessation initiated: No Hx Alcohol Use: Yes (SOCIAL) Drug/Substance Use Hx: No Substance Use Type: Alcohol <Bill Khan - Last Filed: 07/24/17 19:27> - Past Medical History Allergies/Adverse Reactions: Allergies Allergy/AdvReac Type Severity Reaction Status Date / Time No Known Allergies Allergy Verified 07/24/17 13:56 Home Medications: Ambulatory Orders Quinapril HCl [Accupril -] 40 mg PO DAILY 09/01/12 Rosuvastatin Calcium [Crestor] 10 mg PO HS 09/01/12 [place]-3 Acid Ethyl Esters [Lovaza -] 2,000 mg PO BID 02/27/14 Omeprazole 40 mg PO DAILY 04/17/16 Amlodipine Besylate 10 mg PO DAILY 07/24/17 Aspirin 81 mg PO DAILY 07/24/17 Chlorthalidone 25 mg PO DAILY 07/24/17 Metoprolol Tartrate [Lopressor] 50 mg PO DAILY 07/24/17 Review of Systems - Review of Systems Able to Perform ROS?: Yes Comments:: 07/24/17 14:22 Constitutional - no reported Fever, Chills, HEENT: no reported vision changes, sore throat Respiratory: no reported cough, sob, hemoptysis Cardiac: no reported chest pain, palpitations, light headedness, leg swelling Abd/GI: +abdominal trauma no reported abd pain, nausea, vomiting, blood per rectum, melena, diarrhea : no reported dysuria, frequency, discharge Musculskelatal - no reported back pain, joint swelling skin - no reported bruising, erythema, rash neurological: no reported headache, numbness, focal weakness, tingling, ataxia, hematologic: no reported easy bruising, easy bleeding <Bill Khan - Last Filed: 07/24/17 19:27> *Physical Exam - Vital Signs Last Vital Signs Temp Pulse Resp BP Pulse Ox 98.6 F 85 20 122/80 97 07/24/17 13:49 07/24/17 13:49 07/24/17 13:49 07/24/17 13:49 07/24/17 13:49 <Kathe Green - Last Filed: 07/24/17 17:34> - Vital Signs Last Vital Signs Temp Pulse Resp BP Pulse Ox 98.6 F 85 20 122/80 97 07/24/17 13:49 07/24/17 13:49 07/24/17 13:49 07/24/17 13:49 07/24/17 13:49 - Physical Exam Comments: 07/24/17 14:23 GENERAL: The patient is awake, alert, and fully oriented, Nontoxic - in no acute distress. HEAD: Normocephalic, atraumatic. EYES: extraocular movements intact, sclera anicteric, conjunctiva clear. ENT: Normal voice, Moist mucous membranes. NECK: Normal range of motion, supple LUNGS: Breath sounds equal, clear to auscultation bilaterally. No wheezes, no rhonchi, no rales. HEART: Regular rate and rhythm, normal S1 and S2 without murmur, rub or gallop. ABDOMEN: multiple abrasions in mid abdomen, approx 9cm long based on palpation, no rebound/guarding EXTREMITIES: Normal range of motion, thigh abrasion on right inner thigh without laceration or active bleeding, multiple superficial abrasions on hte L knee/LE wo focal bony tenderness NEUROLOGICAL: No facial assymetry, Normal speech, moving all 4 extremities spontaneously and symmetrically PSYCH: Normal mood, normal affect. SKIN: Warm, Dry, normal turgor, see above for abrasions <Bill Khan - Last Filed: 07/24/17 19:27> Moderate Sedation - Procedure Monitoring Vital Signs: Vital Signs Temp Pulse Resp BP Pulse Ox 98.6 F 85 20 122/80 97 07/24/17 13:49 07/24/17 13:49 07/24/17 13:49 07/24/17 13:49 07/24/17 13:49 <Kathe Green - Last Filed: 07/24/17 17:34> - Procedure Monitoring Vital Signs: Vital Signs Temp Pulse Resp BP Pulse Ox 98.6 F 85 20 122/80 97 07/24/17 13:49 07/24/17 13:49 07/24/17 13:49 07/24/17 13:49 07/24/17 13:49 <Bill Khan - Last Filed: 07/24/17 19:27> ED Treatment Course - LABORATORY CBC & Chemistry Diagram: 07/24/17 14:35 07/24/17 14:35 - ADDITIONAL ORDERS Additional order review: Laboratory Results 07/24/17 07/24/17 14:35 14:35 PT with INR 11.9 INR 1.06 Sodium 136 Potassium 3.7 Chloride 102 Carbon Dioxide 27 Anion Gap 7 L BUN 22 H Creatinine 1.5 H Creat Clearance w eGFR 50.61 Random Glucose 103 Calcium 9.5 Total Bilirubin 1.0 AST 42 ALT 70 H Alkaline Phosphatase 42 Total Protein 7.4 Albumin 4.2 07/24/17 14:35 RBC 5.28 MCV 89.4 MCHC 34.9 RDW 12.6 MPV 8.6 Neutrophils % 65.2 Lymphocytes % 20.0 Monocytes % 10.0 Eosinophils % 3.3 Basophils % 1.5 - RADIOLOGY Radiology Studies Ordered: 07/24/17 16:30 Abdomen/Pelvis CT as reviewed by Dr. Ramos reports fatty infiltration of liver , no evidence of foreign body or acute pathology. - Medications Given in the ED: ED Medications Discontinued Medications Generic Name Dose Route Start Last Admin Trade Name Sang PRN Reason Stop Dose Admin Acetaminophen 1,000 mg 07/24/17 14:52 07/24/17 15:01 Ofirmev Injection - IVPB 07/24/17 14:53 1,000 mg ONCE ONE Administration Cefazolin Sodium 2 gm/ 50 mls @ 100 mls/hr 07/24/17 14:18 07/24/17 14:45 Dextrose IVPB 07/24/17 14:47 100 mls/hr ONCE ONE Administration Morphine Sulfate 4 mg 07/24/17 14:46 07/24/17 14:52 Morphine Injection - IVPUSH 07/24/17 14:47 Not Given ONCE ONE <Kathe Green - Last Filed: 07/24/17 17:34> - LABORATORY CBC & Chemistry Diagram: 07/24/17 14:35 07/24/17 14:35 <Bill Khan - Last Filed: 07/24/17 19:27> Medical Decision Making - Medical Decision Making 07/24/17 16:29 Phone calls placed to Dr. Ng, who returned call promptly. Case was discussed. 07/24/17 17:34 Microblog sent to [employer]. Awaiting call back <Kathe Green - Last Filed: 07/24/17 17:34> - Medical Decision Making 07/24/17 14:37 46y M hx of afib, htn, hl, presents sp fall. pt with multiple abrasions on his LE and abdomen, but with a large FB palpable on his anterior abdomen. 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 ng bedside no apparance of intraperitoneal intrusion will send pt to OR tomorrow agrees with ancef preop labs sent will admit to the hospitalist 07/24/17 19:27 case dw [employer] Collette agree with obs med surg under service of dr. bonilla Case discussed in detail with admitting physician including history, physical exam and ancillary studies. Admitting physician has assumed care for the patient, will follow all pending diagnostics and will complete the evaluation and treatment. <Bill Khan - Last Filed: 07/24/17 19:27> *DC/Admit/Observation/Transfer - Attestations Scribe Attestion: 07/24/17 16:29 Documentation prepared by Kathe Green, acting as medical insurance biller for Bill Khan MD. <Kathe Green - Last Filed: 07/24/17 17:34> - Discharge Dispostion Decision to Admit order: Yes <Bill Khan - Last Filed: 07/24/17 19:27> Diagnosis at time of Disposition: Laceration of abdominal wall with foreign body, epigastric region without penetration into peritoneal cavity, initial encounter Abdominal wall abrasion Qualifiers: Encounter type: initial encounter Qualified Code(s): S30.811A - Abrasion of abdominal wall, initial encounter Knee abrasion Qualifiers: Encounter type: initial encounter Laterality: left Qualified Code(s): S80.212A - Abrasion, left knee, initial encounter Thigh abrasion Qualifiers: Encounter type: initial encounter Laterality: right Qualified Code(s): S70.311A - Abrasion, right thigh, initial encounter - Discharge Dispostion Condition at time of disposition: Guarded
[2017-07-24] MEDS ORDERED: ceFAZolin SODIUM 1 GM VIAL ONE (14:40)
[2017-07-24 14:45] LABS: BASO % 1.5 % (0-2.0); EOS % 3.3 % (0-4.5); HEMATOCRIT 47.2 % (35.4-49); HEMOGLOBIN 16.5 GM/dl (11.7-16.9); MCH 31.2 pg (25.7-33.7); MCHC 34.9 g/dl (32.0-35.9); MEAN CELL VOLUME 89.4 fl (80-96); MEAN PLT VOLUME 8.6 fl (7.5-11.1); NEUT % 65.2 % (42.8-82.8); PLATELET COUNT 282 K/MM3 (134-434); RBC 5.28 M/mm3 (4.00-5.60); RDW 12.6 % (11.9-15.9)
[2017-07-24] MEDS ORDERED: morphine SULFATE 4 MG/ML VIAL ONE (14:48)
[2017-07-24] MEDS: morphine CARPU-JECT 4 MG/1 ML DISP.SYRIN IVPUSH ONE ×2 (14:48→14:52)
[2017-07-24] MEDS ORDERED: ACETAMINOPHEN 1000 MG/100 ML VIAL (NON FORMULARY) IVPB ONE (14:52)
[2017-07-24] MEDS ORDERED: ACETAMINOPHEN INJECTION 100 ML IVPB ONE (14:56)
[2017-07-24 15:38] LABS: ALBUMIN 4.2 g/dl (3.5-5.0); ALK PHOS 42 U/L (32-92); ANION GAP 7 (8-16); BLOOD UREA NITROGEN 22 mg/dl (7-18); CALCIUM 9.5 mg/dl (8.4-10.2); CHLORIDE 102 mmol/L (98-107); CO2 27 mmol/L (22-28); CREATININE 1.5 mg/dl (0.6-1.3); GLUCOSE,RANDOM 103 mg/dl (74-106); POTASSIUM 3.7 mmol/L (3.5-5.1); SGOT/AST 42 U/L (10-42); SGPT/ALT 70 U/L (10-40); SODIUM 136 mmol/L (136-145); TOT PROT 7.4 g/dl (6.4-8.3)
[2017-07-24 16:17] LABS: INR 1.06 (0.82-1.09); PROTHROMBIN TIME (PATIENT) 11.9 SEC (10.2-13.0)
--- NOTE | 2017-07-24 20:55 | HP ---
CHIEF COMPLAINT: abdominal injury PCP: Markie HISTORY OF PRESENT ILLNESS: This is a 46 year old male with a past medical history of PAF, HTN, HLD presented to the ED after falling while standing on a wooden fence. The fence collapsed, and then a piece went into patient's abdomen. Pt reports abdominal pain. ER course was notable for: (1) WBC 9.0 (2) BUN 22/Cr 1.5 Recent Travel: pt denies PAST MEDICAL HISTORY: HTN, HLD, PAF s/p cardioversion 04/2016, GERD asthma PAST SURGICAL HISTORY: pt denies Social History: Smoking: pt denies Alcohol: drinks a few days/wk Drugs: pt denies Family History: mother age 54, CHF, [place] in her 30s father age 21, MVC no siblings 2 children without medical problems Allergies No Known Allergies Allergy (Verified 07/24/17 13:56) HOME MEDICATIONS: 3 Medication Instructions Recorded Quinapril HCl [Accupril -] 40 mg PO HS 09/01/12 Rosuvastatin Calcium [Crestor] 10 mg PO HS 09/01/12 [place]-3 Acid Ethyl Esters [Lovaza 2,000 mg PO BID 02/27/14 -] Omeprazole 40 mg PO DAILY 04/17/16 Amlodipine Besylate 10 mg PO HS 07/24/17 Aspirin 81 mg PO HS 07/24/17 Chlorthalidone 25 mg PO DAILY 07/24/17 Metoprolol Succinate 50 mg PO DAILY 07/24/17 REVIEW OF SYSTEMS CONSTITUTIONAL: Absent: fever, chills, diaphoresis, generalized weakness, malaise, loss of appetite, weight change HEENT: Absent: rhinorrhea, nasal congestion, throat pain, throat swelling, difficulty swallowing, mouth swelling, ear pain, eye pain, visual changes CARDIOVASCULAR: Absent: chest pain, syncope, palpitations, irregular heart rate, lightheadedness , peripheral edema RESPIRATORY: Absent: cough, shortness of breath, dyspnea with exertion, orthopnea, wheezing, stridor, hemoptysis GASTROINTESTINAL: Present: abdominal pain Absent: abdominal distension, nausea, vomiting, diarrhea, constipation, melena, hematochezia GENITOURINARY: Absent: dysuria, frequency, urgency, hesitancy, hematuria, flank pain, genital pain MUSCULOSKELETAL: Absent: myalgia, arthralgia, joint swelling, back pain, neck pain SKIN: Present: abrasion to abdomen with small puncture wound Absent: rash, itching, pallor HEMATOLOGIC/IMMUNOLOGIC: Absent: easy bleeding, easy bruising, lymphadenopathy, frequent infections ENDOCRINE: Absent: unexplained weight gain, unexplained weight loss, heat intolerance, cold intolerance NEUROLOGIC: Absent: headache, focal weakness or paresthesias, dizziness, unsteady gait, seizure, mental status changes, bladder or bowel incontinence PSYCHIATRIC: Absent: anxiety, depression, suicidal or homicidal ideation, hallucinations. PHYSICAL EXAMINATION Vital Signs - 24 hr 3 07/24/17 13:49 Temperature 98.6 F Pulse Rate 85 Respiratory 20 Rate Blood Pressure 122/80 O2 Sat by Pulse 97 Oximetry (%) GENERAL: Awake, alert, and fully oriented, in no acute distress. HEAD: Normal with no signs of trauma. EYES: Pupils equal, round and reactive to light, extraocular movements intact, sclera anicteric, conjunctiva clear. No lid lag. EARS, NOSE, THROAT: Ears normal, nares patent, oropharynx clear without exudates. Moist mucous membranes. NECK: Normal range of motion, supple without lymphadenopathy, JVD, or masses. LUNGS: Breath sounds equal, clear to auscultation bilaterally. No wheezes, and no crackles. No accessory muscle use. HEART: Regular rate and rhythm, normal S1 and S2 without murmur, rub or gallop. ABDOMEN: Soft, nontender, not distended, normoactive bowel sounds, no guarding, no rebound, no masses. No hepatomegaly or splenomegaly. LUQ and mid abdomen with abrasion, dressing in place from ED. Open area under dressing with palpable FB as per surgery. MUSCULOSKELETAL: Normal range of motion at all joints. No bony deformities or tenderness. No CVA tenderness. UPPER EXTREMITIES: 2+ pulses, warm, well-perfused. No cyanosis. No clubbing. No peripheral edema. LOWER EXTREMITIES: 2+ pulses, warm, well-perfused. No calf tenderness. No peripheral edema. NEUROLOGICAL: Cranial nerves II-XII intact. Normal speech. Normal gait. PSYCHIATRIC: Cooperative. Good eye contact. Appropriate mood and affect. SKIN: Warm, dry, normal turgor, no rashes or lesions noted, normal capillary refill. Laboratory Results - last 24 hr 3 07/24/17 07/24/17 07/24/17 14:35 14:35 14:35 WBC 9.0 RBC 5.28 Hgb 16.5 Hct 47.2 MCV 89.4 MCH 31.2 MCHC 34.9 RDW 12.6 Plt Count 282 MPV 8.6 Neutrophils % 65.2 Lymphocytes % 20.0 Monocytes % 10.0 Eosinophils % 3.3 Basophils % 1.5 PT with INR 11.9 INR 1.06 Sodium 136 Potassium 3.7 Chloride 102 Carbon Dioxide 27 Anion Gap 7 L BUN 22 H Creatinine 1.5 H Creat Clearance w eGFR 50.61 Random Glucose 103 Calcium 9.5 Total Bilirubin 1.0 AST 42 ALT 70 H Alkaline Phosphatase 42 Total Protein 7.4 Albumin 4.2 Blood Type A POSITIVE Antibody Screen Negative Radiology Reports CT abd/pel without contrast The study is limited without the use of any contrast material. The lung bases are clear. The the liver is normal in size. It is hypodense in texture consistent with diffuse fatty infiltration. No mass lesions identified within the liver. The spleen, pancreas, adrenal glands and kidneys demonstrate no significant abnormalities. There is a 2.3 cm cyst within the upper pole of the right kidney. There is no evidence of intra-abdominal or retroperitoneal lymphadenopathy or fluid collections. There is no evidence of pneumoperitoneum, bowel obstruction or intra-abdominal abscess. There is no CT evidence of acute appendicitis or diverticulitis. There is no evidence of a radiopaque foreign body within the abdomen or pelvis. There is an apparent small puncture wound within the anterior abdominal wall of the left midabdomen. Again, there does not appear to be any evidence of a foreign body in this location. Examination of the pelvis demonstrates no evidence of pelvic masses, fluid collections or lymphadenopathy. IMPRESSION: 1. Diffuse fatty infiltration of the liver. 2. No evidence of foreign body or acute pathology within the abdomen or pelvis. Please see above discussion. Reported By: Rito Ramos MD 07/24/17 [id number] ASSESSMENT/PLAN: 46yM with PMH PAF, HTN, HLD, GERD, asthma presented s/p fall with FB in abdomen. FB in abdominal skin - surgery eval appreciated - pt to go to OR in am for exploration and cleaning of wound - NPO after MN TOMER - unsure what pt baseline Cr is, reports was recently elevated in PCP office - will hold chlorthalidone and quinapril for now - renal consult if not trending down PAF - ECG ordered - cont rate control with toprol HTN/HLD - cont home norvasc, toprol, lovaza, crestor DVT PPX - heparin deferred, anticipated LOS less than 48h FEN - tolerating po - BMP in am - NPO after MN Dispo: pt currently requires further observation. Visit type - Emergency Visit Emergency Visit: Yes ED Registration Date: 07/24/17 Care time: The patient presented to the Emergency Department on the above date and was hospitalized for further evaluation of their emergent condition. - New Patient This patient is new to me today: Yes Date on this admission: 07/24/17 - Critical Care Critical Care patient: No Hospitalist Screening - Colonoscopy Questionnaire Colonoscopy Questionnaire: Colonoscopy Questionnaire - Patient: 50 - 75 years old and never had a screening colonoscopy: No History of colon or rectal polyps, or CA: No History of IBD, Crohn's disease or UC: No History of abdominal radiation therapy as a child: No - Relative: 1 with colon or rectal CA, or polyps at age 60 or younger: No Colon or rectal CA diagnosed at age 45 or younger: No Multiple relatives with colon or rectal CA: No - Outcome: Screening Result: Negative Screen
[2017-07-24] MEDS ORDERED: ACETAMINOPHEN 325 MG TABLET (FP) PO PRN (21:37)
--- NOTE | 2017-07-24 21:59 | CONSULT ---
- Consultation REQUESTING PROVIDER: Erin KENNEY CONSULT REQUEST: We have been asked to surgically evaluate this patient for ( specify). PCP:Lexus Espinosa MD HISTORY OF PRESENT ILLNESS:JOSSELIN who is a 46 y/o male who earlier today while fixing a fence fell against it and part of it became impaled on his abdomen; he came to the ER unassisted c/o pain; no LOC; NOC PMHx: hypertension PSHx: none Home Medications Medication Instructions Recorded Quinapril HCl [Accupril -] 40 mg PO HS 09/01/12 Rosuvastatin Calcium [Crestor] 10 mg PO HS 09/01/12 [place]-3 Acid Ethyl Esters [Lovaza 2,000 mg PO BID 02/27/14 -] Omeprazole 40 mg PO DAILY 04/17/16 Amlodipine Besylate 10 mg PO HS 07/24/17 Aspirin 81 mg PO HS 07/24/17 Chlorthalidone 25 mg PO DAILY 07/24/17 Metoprolol Succinate 50 mg PO DAILY 07/24/17 Allergies Allergy/AdvReac Type Severity Reaction Status Date / Time No Known Allergies Allergy Verified 07/24/17 13:56 PHYSICAL EXAM: GENERAL: Awake, alert, and fully oriented, in no acute distress. HEAD: Normal with no signs of trauma. EYES: PERRL, sclera anicteric, conjunctiva clear. NECK: Normal ROM, supple without lymphadenopathy, JVD, or masses. ABDOMEN: Soft, superficially tender w/abrasions and palpable foreign body, not distended, normoactive bowel sounds, no guarding, no rebound, no masses. No organomegaly. MUSCULOSKELETAL: Normal ROM at all joints. No bony deformities or tenderness. No CVA tenderness. UPPER EXTREMITIES: 2+ pulses, warm, well-perfused. No cyanosis. Cap refill <2 seconds. No peripheral edema. LOWER EXTREMITIES: 2+ pulses, warm, well-perfused. No calf tenderness. No peripheral edema. NEUROLOGICAL: Normal speech, gait not observed. PSYCH: Cooperative. Good eye contact. Appropriate mood and affect. SKIN: Warm, dry, normal turgor, no rashes or lesions noted. Vital Signs Temperature 98.6 F 07/24/17 19:03 Pulse Rate 85 07/24/17 19:03 Respiratory Rate 20 07/24/17 19:03 Blood Pressure 122/80 07/24/17 19:03 O2 Sat by Pulse Oximetry (%) 97 07/24/17 19:03 Lab Results WBC 9.0 K/mm3 (4.0-10.8) 07/24/17 14:35 RBC 5.28 M/mm3 (4.00-5.60) 07/24/17 14:35 Hgb 16.5 GM/dl (11.7-16.9) 07/24/17 14:35 Hct 47.2 % (35.4-49) 07/24/17 14:35 MCV 89.4 fl (80-96) 07/24/17 14:35 MCHC 34.9 g/dl (32.0-35.9) 07/24/17 14:35 RDW 12.6 % (11.9-15.9) 07/24/17 14:35 Plt Count 282 K/MM3 (134-434) 07/24/17 14:35 Sodium 136 mmol/L (136-145) 07/24/17 14:35 Potassium 3.7 mmol/L (3.5-5.1) 07/24/17 14:35 Chloride 102 mmol/L (98-107) 07/24/17 14:35 Carbon Dioxide 27 mmol/L (22-28) 07/24/17 14:35 Anion Gap 7 (8-16) L 07/24/17 14:35 BUN 22 mg/dl (7-18) H 07/24/17 14:35 Creatinine 1.5 mg/dl (0.6-1.3) H 07/24/17 14:35 Random Glucose 103 mg/dl (74-106) 07/24/17 14:35 Calcium 9.5 mg/dl (8.4-10.2) 07/24/17 14:35 Blood Type A POSITIVE 07/24/17 14:35 Antibody Screen Negative 07/24/17 14:35 INR 1.06 (0.82-1.09) 07/24/17 14:35 CT a/p reviewed IMP: blunt abdominal trauma w/soft tissue injuries and palpable foreign body( part of wood fence) PLAN: Removal of foreign body in OR in AM 07/25/17; r/b/t/a's d/w him and need for wound to remain open and heal by secondary intention; he is amenable to same. Sarwat Aguilar MD FACS
[2017-07-24] MEDS ORDERED: ASPIRIN 81 MG CHEWABLE TABLETS PO SCH (22:00)
[2017-07-24] MEDS ORDERED: amLODIPine BESYLATE 10 MG TABLET (FP) PO SCH (22:00)
[2017-07-24] MEDS ORDERED: ROSUVASTATIN CA 10 MG TABLET (FP) PO SCH (22:00)
[2017-07-24] MEDS: OMEGA-3 ACID ETHYL ESTERS (FATTY-ACIDS) 1 GM CAPSULE (FP) PO SCH (22:11)
[2017-07-24] MEDS: CEFAZOLIN 1 GM/D5W 1 GM/50 ML BAG IVPB SCH (22:11)
[2017-07-25] MEDS: CEFAZOLIN 1 GM/D5W 1 GM/50 ML BAG IVPB SCH ×3 (03:25→14:22)
[2017-07-25 08:34] LABS: BASO % 0.3 % (0-2.0); EOS % 2.8 % (0-4.5); HEMATOCRIT 45.9 % (35.4-49); HEMOGLOBIN 16.3 GM/dl (11.7-16.9); LYMPH % 13.1 % (8-40); MCH 31.8 pg (25.7-33.7); MCHC 35.5 g/dl (32.0-35.9); MEAN CELL VOLUME 89.6 fl (80-96); MEAN PLT VOLUME 8.7 fl (7.5-11.1); MONO % 9.2 % (3.8-10.2); NEUT % 74.6 % (42.8-82.8); PLATELET COUNT 247 K/MM3 (134-434); RBC 5.12 M/mm3 (4.00-5.60); RDW 12.5 % (11.9-15.9); WHITE BLOOD COUNT 9.9 K/mm3 (4.0-10.8)
--- NOTE | 2017-07-25 08:35 | PN ---
Physical Exam: SUBJECTIVE: Patient seen and examined, resting comfortably in bed reports minimal pain. Abdomen denies any chest pain or shortness of breath awaiting or dyspnea for foreign body removal and washout OBJECTIVE: she is a 56-year-old male, with a past history of asthma, atrial fibrillation, (status post cardioversion, 2017), hypertension, hyperlipidemia and FIORDALIZA (bipap). Patient was immediately from the emergency department observation for foreign body removal. Vital Signs Period Temp Pulse Resp BP Sys/Brown Pulse Ox Last 24 Hr 98.6 F-98.9 F 71-85 16-20 111-122/62-80 97-99 GENERAL: The patient is awake, alert, and fully oriented, in no acute distress. HEAD: Normal with no signs of trauma. EYES: PERRL, extraocular movements intact, sclera anicteric, conjunctiva clear. No ptosis. ENT: Ears normal, nares patent, oropharynx clear without exudates, moist mucous membranes. NECK: Trachea midline, full range of motion, supple. LUNGS: Breath sounds equal, clear to auscultation bilaterally, no wheezes, no crackles, no accessory muscle use. HEART: Regular rate and rhythm, S1, S2 without murmur, rub or gallop. ABDOMEN: Soft, tender upon palpation, superficial foreign body palpable, with abrasion, , nondistended, normoactive bowel sounds, no guarding, no rebound, no hepatosplenomegaly, no masses. EXTREMITIES: 2+ pulses, warm, well-perfused, no edema. NEUROLOGICAL: Cranial nerves II through XII grossly intact. Normal speech, gait not observed. PSYCH: Normal mood, normal affect. SKIN: abrasion to right medial inner thigh, Warm, dry, normal turgor, no rashes noted. Laboratory Results - last 24 hr CBC WBC 9.9 K/mm3 (4.0-10.8) 07/25/17 07:35 RBC 5.12 M/mm3 (4.00-5.60) 07/25/17 07:35 Hgb 16.3 GM/dl (11.7-16.9) 07/25/17 07:35 Hct 45.9 % (35.4-49) 07/25/17 07:35 MCV 89.6 fl (80-96) 07/25/17 07:35 MCH 31.8 pg (25.7-33.7) 07/25/17 07:35 MCHC 35.5 g/dl (32.0-35.9) 07/25/17 07:35 RDW 12.5 % (11.9-15.9) 07/25/17 07:35 Plt Count 247 K/MM3 (134-434) 07/25/17 07:35 MPV 8.7 fl (7.5-11.1) 07/25/17 07:35 Neutrophils % 74.6 % (42.8-82.8) 07/25/17 07:35 Lymphocytes % 13.1 % (8-40) D 07/25/17 07:35 Monocytes % 9.2 % (3.8-10.2) 07/25/17 07:35 Eosinophils % 2.8 % (0-4.5) 07/25/17 07:35 Basophils % 0.3 % (0-2.0) 07/25/17 07:35 CMP Sodium 138 mmol/L (136-145) 07/25/17 07:35 Potassium 3.2 mmol/L (3.5-5.1) L 07/25/17 07:35 Chloride 98 mmol/L (98-107) 07/25/17 07:35 Carbon Dioxide 29 mmol/L (22-28) H 07/25/17 07:35 Anion Gap 11 (8-16) 07/25/17 07:35 BUN 17 mg/dl (7-18) D 07/25/17 07:35 Creatinine 1.3 mg/dl (0.6-1.3) 07/25/17 07:35 Creat Clearance w eGFR 50.61 (>60) 07/24/17 14:35 Random Glucose 113 mg/dl (74-106) H 07/25/17 07:35 Calcium 9.0 mg/dl (8.4-10.2) 07/25/17 07:35 Phosphorus 3.5 mg/dl (2.5-4.6) 07/25/17 07:35 Magnesium 1.8 mg/dL (1.8-2.4) D 07/25/17 07:35 Total Bilirubin 1.0 mg/dl (0.2-1.0) 07/24/17 14:35 AST 42 U/L (10-42) 07/24/17 14:35 ALT 70 U/L (10-40) H 07/24/17 14:35 Alkaline Phosphatase 42 U/L (32-92) 07/24/17 14:35 Total Protein 7.4 g/dl (6.4-8.3) 07/24/17 14:35 Albumin 4.2 g/dl (3.5-5.0) 07/24/17 14:35 07/24/17 07/24/17 14:35 14:35 WBC RBC Hgb Hct MCV MCH MCHC RDW Plt Count MPV Neutrophils % Lymphocytes % Monocytes % Eosinophils % Basophils % PT with INR 11.9 INR 1.06 Sodium Potassium Chloride Carbon Dioxide Anion Gap BUN Creatinine Creat Clearance w eGFR Random Glucose Calcium Total Bilirubin AST ALT Alkaline Phosphatase Total Protein Albumin Blood Type A POSITIVE Antibody Screen Negative Active Medications Generic Name Dose Route Start Last Admin Trade Name Freq PRN Reason Stop Dose Admin Acetaminophen 650 mg 07/24/17 21:37 Tylenol - PO Q6H PRN PAIN LEVEL 6-10 Amlodipine Besylate 10 mg 07/24/17 22:00 07/24/17 22:11 Norvasc - PO 10 mg HS JOSE Administration Aspirin 81 mg 07/24/17 22:00 07/24/17 22:11 Asa - PO 81 mg HS JOSE Administration Cefazolin Sodium 1 gm in 50 mls @ 100 mls/hr 07/24/17 21:00 07/25/17 03:25 Ancef 1 Gm Premixed Ivpb - IVPB 100 mls/hr Q6H-IV JOSE Administration Metoprolol Succinate 50 mg 07/25/17 10:00 Toprol Xl - PO DAILY JOSE [id number] Ethyl Esters 2 gm 07/24/17 22:00 07/24/17 22:11 Lovaza - PO 2 gm BID JOSE Administration Pantoprazole Sodium 40 mg 07/25/17 10:00 Protonix - PO DAILY JOSE Rosuvastatin Calcium 10 mg 07/24/17 22:00 07/24/17 22:11 Crestor - PO 10 mg HS JOSE Administration IMAGING EKG, normal sinus rhythm chest x-ray, no cardiomegaly no effusion no infiltrate noted CT abd/pel without contrast The study is limited without the use of any contrast material. The lung bases are clear. The the liver is normal in size. It is hypodense in texture consistent with diffuse fatty infiltration. No mass lesions identified within the liver. The spleen, pancreas, adrenal glands and kidneys demonstrate no significant abnormalities. There is a 2.3 cm cyst within the upper pole of the right kidney. There is no evidence of intra-abdominal or retroperitoneal lymphadenopathy or fluid collections. There is no evidence of pneumoperitoneum, bowel obstruction or intra-abdominal abscess. There is no CT evidence of acute appendicitis or diverticulitis. There is no evidence of a radiopaque foreign body within the abdomen or pelvis. There is an apparent small puncture wound within the anterior abdominal wall of the left midabdomen. Again, there does not appear to be any evidence of a foreign body in this location. Examination of the pelvis demonstrates no evidence of pelvic masses, fluid collections or lymphadenopathy. IMPRESSION: 1. Diffuse fatty infiltration of the liver. 2. No evidence of foreign body or acute pathology within the abdomen or pelvis. Please see above discussion. Reported By: Rito Ramos MD 07/24/17 9312 ASSESSMENT/PLAN: 1) FB in abdominal skin - Dr. Aguilar, general surgeon consulted, pending OR today - adacel ordered - continue empiirc ancef 2) cardiology paroxysmal afib s/p cardioversion - patient is a normal sinus rhythm, continue Toprol, cardiac monitoring postoperatively - appreciate input of patient's private drier unloader Dr. Mclaughlin for preoperative clearance hypertension - continue norvasc and acupril - blood pressure at goal hyperlipidemia - continue statin 3) nephrology - repeat creatine 1.3 closer to baseline - continue to hold chlorthadlione 4) pulm asthma - no acute exacerbation at this time albuterol when necessary Obstructive sleep apnea - BiPAP at night f/e/n - npo-->ivf hypokalemia - potassium 40meq add potassium to ivf (20meq) DVT PPX - heparin deferred, anticipated LOS less than 48h patient is medically optimized for surgery Dispo: pt currently requires further observation. Visit type - Emergency Visit Emergency Visit: Yes ED Registration Date: 07/24/17 Care time: The patient presented to the Emergency Department on the above date and was hospitalized for further evaluation of their emergent condition. - New Patient This patient is new to me today: Yes Date on this admission: 07/25/17 - Critical Care Critical Care patient: No - Discharge Referral Referred to [facility] Med [facility].: No
[2017-07-25 08:55] LABS: ANION GAP 11 (8-16); BLOOD UREA NITROGEN 17 mg/dl (7-18); CHLORIDE 98 mmol/L (98-107); CO2 29 mmol/L (22-28); CREATININE 1.3 mg/dl (0.6-1.3); GLUCOSE,RANDOM 113 mg/dl (74-106); MAGNESIUM 1.8 mg/dL (1.8-2.4); PHOSPHOROUS 3.5 mg/dl (2.5-4.6); POTASSIUM 3.2 mmol/L (3.5-5.1); SODIUM 138 mmol/L (136-145)
[2017-07-25] MEDS ORDERED: POTASSIUM CHLORIDE TABS 20 MEQ TABLET.ER (FP) PO ONE (09:06)
[2017-07-25] MEDS: OMEGA-3 ACID ETHYL ESTERS (FATTY-ACIDS) 1 GM CAPSULE (FP) PO SCH (09:28)
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
[2017-07-25] MEDS ORDERED: METOPROLOL TARTRATE 50 MG TABLET (FP) PO SCH (10:00)
[2017-07-25] MEDS ORDERED: PANTOPRAZOLE 40 MG TABLET (FP) PO SCH (10:00)
[2017-07-25] MEDS ORDERED: fentaNYL CITRATE 250 MCG/5 ML VIAL ONE (10:27)
[2017-07-25] MEDS ORDERED: MIDAZOLAM HCL 2 MG/2 ML SINGLE DOSE VIAL ONE (10:27)
[2017-07-25] MEDS ORDERED: PROPOFOL 20 ML ONE (10:27)
[2017-07-25] MEDS ORDERED: LIDOCAINE HCL/PF 2% SDV 5ML VIAL ONE (10:28)
[2017-07-25] MEDS ORDERED: DEXAMETHASONE SOD PHOSPHATE 4 MG/1 ML VIAL ONE (10:28)
[2017-07-25] MEDS ORDERED: ONDANSETRON 4 MG/2 ML VIAL ONE (10:28)
[2017-07-25] MEDS ORDERED: ALBUTEROL SO4 0.083% IH SOL 2.5 MG/3 ML VIAL.NEB. NEB PRN (10:28)
[2017-07-25] MEDS ORDERED: SODIUM CHLORIDE 0.9%/KCL 20 MEQ/1,000 ML INFUS.BAG IV SCH (10:30)
[2017-07-25] MEDS ORDERED: ceFAZolin SODIUM 1 GM VIAL ONE (10:55)
[2017-07-25] MEDS ORDERED: DIPHTH,PERTUSS(ACELL),TET VAC 0.5 ML VIAL IM ONE (11:00)
[2017-07-25] MEDS ORDERED: ONDANSETRON 4 MG/2 ML VIAL IVPUSH PRN (11:39)
[2017-07-25] MEDS ORDERED: PROMETHAZINE HCL 25 MG/1 ML VIAL IVPUSH PRN (11:39)
[2017-07-25] MEDS ORDERED: oxyCODONE HCL 5 MG TABLET PO PRN ×2 (11:39)
[2017-07-25] MEDS ORDERED: LACTATED RINGERS SOLUTION 1,000 ML IV SCH (11:45)
--- NOTE | 2017-07-25 13:27 | OP ---
Operative Note - Note: Operative Date: 07/25/17 Pre-Operative Diagnosis: foreign body abdominal wall Operation: removal foreign body abdominal wall Findings: 2 fragments of wood fence Post-Operative Diagnosis: Same as Pre-op Surgeon: Sarwat Aguilar Anesthesiologist/AUTOMOTIVE MECHANICAL ENGINEER: Gorge Almanza Anesthesia: General Specimens Removed: foreign bodies Estimated Blood Loss (mls): 10
[2017-07-25] MEDS ORDERED: REFRIGERATED ANITBIOTICS ONE (14:03)
--- NOTE | 2017-07-25 16:14 | EKG ---
Test Reason : Blood Pressure : / mmHG Vent. Rate : 070 BPM Atrial Rate : 070 BPM P-R Int : 156 ms QRS Dur : 098 ms QT Int : 406 ms P-R-T Axes : 055 009 018 degrees QTc Int : 438 ms NORMAL SINUS RHYTHM NORMAL ECG WHEN COMPARED WITH ECG OF 18-APR-2016 14:56, NO SIGNIFICANT CHANGE WAS FOUND Confirmed by MD Hernandez Daniel ([id number]) on 07/25/2017 4:14:11 PM Referred By: DR HARRIS Confirmed By:Tomas Hernandez MD
[2017-07-25 18:32] VITALS: BP 130/70; PULSE 88; TEMP 98.8
--- NOTE | 2017-07-25 18:42 | PN ---
Progress Note (short form) - Note Progress Note: Attending Surgeon No c/o VSS AF dressing c/d/i he wants to go home and will sign out AMA; he is aware of the risk of doing this ; he will f/u in my office in the AM. Sarwat Aguilar MD FACS
[2017-07-25 18:50] LABS: ANION GAP 10 (8-16); BLOOD UREA NITROGEN 18 mg/dl (7-18); CHLORIDE 100 mmol/L (98-107); CO2 24 mmol/L (22-28); CREATININE 1.7 mg/dl (0.6-1.3); GLUCOSE,RANDOM 266 mg/dl (74-106); POTASSIUM 3.7 mmol/L (3.5-5.1); SODIUM 134 mmol/L (136-145)
--- NOTE | 2017-07-26 07:51 | DS ---
Physical Exam: SUBJECTIVE:patient was discharged prior to discharge summary OBJECTIVE: This is a 46 year old male with a past medical history of PAF, HTN, HLD presented to the ED after falling while standing on a wooden fence. The fence collapsed, and then a piece went into patient's abdomen. Pt reports abdominal pain. ER course was notable for: (1) WBC 9.0 (2) BUN 22/Cr 1.5 Vital Signs Period Temp Pulse Resp BP Sys/Brown Pulse Ox Last 24 Hr 97.8 F-98.8 F 68-88 16-18 109-130/68-89 94-100 PHYSICAL EXAM patient was discharged by registered nurse prior to physical exam LABS Laboratory Results - last 24 hr 07/25/17 07/25/17 07/25/17 07:35 07:35 18:17 WBC 9.9 RBC 5.12 Hgb 16.3 Hct 45.9 MCV 89.6 MCH 31.8 MCHC 35.5 RDW 12.5 Plt Count 247 MPV 8.7 Neutrophils % 74.6 Lymphocytes % 13.1 D Monocytes % 9.2 Eosinophils % 2.8 Basophils % 0.3 Sodium 138 134 L Potassium 3.2 L 3.7 Chloride 98 100 Carbon Dioxide 29 H 24 Anion Gap 11 10 BUN 17 D 18 Creatinine 1.3 1.7 H D Random Glucose 113 H 266 H D Calcium 9.0 9.0 Phosphorus 3.5 Magnesium 1.8 D IMAGING EKG, normal sinus rhythm chest x-ray, no cardiomegaly no effusion no infiltrate noted CT abd/pel without contrast The study is limited without the use of any contrast material. The lung bases are clear. The the liver is normal in size. It is hypodense in texture consistent with diffuse fatty infiltration. No mass lesions identified within the liver. The spleen, pancreas, adrenal glands and kidneys demonstrate no significant abnormalities. There is a 2.3 cm cyst within the upper pole of the right kidney. There is no evidence of intra-abdominal or retroperitoneal lymphadenopathy or fluid collections. There is no evidence of pneumoperitoneum, bowel obstruction or intra-abdominal abscess. There is no CT evidence of acute appendicitis or diverticulitis. There is no evidence of a radiopaque foreign body within the abdomen or pelvis. There is an apparent small puncture wound within the anterior abdominal wall of the left midabdomen. Again, there does not appear to be any evidence of a foreign body in this location. Examination of the pelvis demonstrates no evidence of pelvic masses, fluid collections or lymphadenopathy. IMPRESSION: 1. Diffuse fatty infiltration of the liver. 2. No evidence of foreign body or acute pathology within the abdomen or pelvis. Please see above discussion. Reported By: Rito Ramos MD 07/24/17 1543 HOSPITAL COURSE: Patient was admitted from the emergency department to observation for foreign body in abdominal skin.Patient evaluated by general surgeon, Dr. Aguilar. He was brought to the operating room on 07/25/2017 and foreign body was removed. Patient was treated with empiric ancef. patient does have a known history of paroxysmal A. fib status post cardioversion (2016) she is in normal sinus rhythm throughout admisrol was continued. Cardiac monitoring was ordered postoperatively. Dr. Pierre since private workers' compensation mediator was consulted and preoperative clearance was obtained by the workers' compensation mediator. He has a known history of hypertension. Norvasc and Accupril was continued and blood pressure remained at goal. creatinine was noted to be elevated upon admission, acute renal insufficiency likely secondary to hypovolemia and chlorthalidone.Gentle IV hydration was given and chlorthalidone was felt creatinine then returned to baseline. he has a known history of asthma, no acute exacerbation at this time Advair was continued. BiPAP was ordered for night. informed by primary RN Malou, patient left the hospital against medical advise Date of Admission:07/24/17 Date of Discharge: 07/26/17 Minutes to complete discharge: 45 Discharge Summary Reason For Visit: ABRASION OF ABDOMINAL WALL,LACERATION OF EPIGASTRI Condition: Improved - Instructions Diet, Activity, Other Instructions: Dr. Aguilar Discharge Instructions Dear WILDER BEST, Post Operative Instructions Physical activity Resume your normal everyday activity as tolerated no heavy lifting or exercise until seen by your surgeon. You may walk unlimited amounts of and climb stairs. You may resume driving the car when you feel safe and comfortable behind the wheel. Wound care Wet to dry with normal saline. Remove packing, shower and repack with wet to dry gauze. Diet There are no dietary restrictions. Eat healthy, high-fiber foods. Drink 6 to 8 glasses of liquid each day. This will assist in keeping your bowels are regular. Pain management You may take Tylenol or acetaminophen or Ibuprofen (for example, Motrin, Advil etc.) Any pain prescription medication ordered should be taken as prescribed for moderate to severe pain. Call Dr. Aguilar for any of the following: Severe pain not relieved by medication Fever of 101 or higher Excessive bleeding or drainage on dressing Inability to urinate Call the office at [phone] for a post operative appointment, please schedule for tomorrow if leaving on 07/25/17. If seen in the office on 07/26/2017 you may leave dressing in place until seen. Referrals: Sarwat Aguilar MD [Staff Physician] - Disposition: AGAINST MEDICAL ADVICE - Home Medications Comprehensive Discharge Medication List: Ambulatory Orders RX: Quinapril HCl [Accupril -] 40 mg PO HS 09/01/12 RX: Rosuvastatin Calcium [Crestor] 10 mg PO HS 09/01/12 RX: [place]-3 Acid Ethyl Esters [Lovaza -] 2,000 mg PO BID 02/27/14 RX: Omeprazole 40 mg PO DAILY 04/17/16 RX: Amlodipine Besylate 10 mg PO HS 07/24/17 RX: Aspirin 81 mg PO HS 07/24/17 RX: Chlorthalidone 25 mg PO DAILY 07/24/17 RX: Metoprolol Succinate 50 mg PO DAILY 07/24/17 This patient is new to me today: No Emergency Visit: Yes ED Registration Date: 07/24/17 Care time: The patient presented to the Emergency Department on the above date and was hospitalized for further evaluation of their emergent condition. Critical Care patient: No - Discharge Referral [facility]erred to [facility] Med P.C.: No
--- NOTE | 2017-07-26 11:10 | OP ---
DATE OF OPERATION: 07/25/2017 PREOPERATIVE DIAGNOSIS: Foreign body of the abdominal wall. POSTOPERATIVE DIAGNOSIS: Foreign body of the abdominal wall. PROCEDURE: Removal of foreign body of the abdominal wall. SURGEON: Sarwat Aguilar MD ANESTHESIA: General. OPERATIVE FINDINGS: There were 2 fragments of a wood fence superficially embedded in the subcutaneous fat of the abdominal wall. The peritoneal cavity was not violated both on exploration of the wound in the operating room or on a CT scan of the abdomen and pelvis done previously. The rest of the findings were unremarkable. DESCRIPTION OF PROCEDURE: The patient was placed on the operating table in supine position, and after the induction of general anesthesia, the patient's abdomen was prepped with ChloraPrep and draped in sterile fashion. A timeout was taken, and then the incision made with a scalpel over the palpable foreign body. It was extended the length of the foreign body, and using blunt dissection, the 2 fragments of a wooden fence were removed and sent for pathological examination. Copious irrigation was carried out with normal saline and hemostasis secured with electrocautery, and the wound irrigated with sterile saline again. Previous to this, a culture was taken and sent to Microbiology. Hemostasis was aggravation verified, and then the wound was packed with 1/4-inch Iodoform gauze followed by dry sterile dressings, and the patient was then aroused from general anesthesia and transferred to the postanesthesia care unit in stable condition awake and alert. ESTIMATED BLOOD LOSS: Minimal. DRAINS: None. SPECIMENS: Foreign body material to pathology. I, Sarwat Aguilar, was physically present in the operating room from the time the patient was placed on the operating table until he was transferred to the postanesthesia care unit in my accompaniment. MD MATTIE Howard/[id number] MTDD
--- NOTE | 2017-07-28 16:39 | PATH ---
Surgical Pathology Report Patient Name: WILDER BEST Med. Rec. #: [id number] /Age/Gender: 1970 (Age: 46) / M Account: [id number] Location: [facility] MED-SURG Taken: 07/25/2017 Received: 07/26/2017 Reported: 07/28/2017 Physicians: Lexus Espinosa MD Specimen(s) Received FOREIGN BODY Clinical History Foreign body of abdominal wall Final Diagnosis FOREIGN BODY, REMOVAL: FOREIGN BODY, DESCRIBED (WOOD SPLINTERS),GROSS EXAMINATION ONLY. Electronically Signed Fabiana Henson M.D. Gross Description Received fresh labeled "foreign body," are 2 brown foreign bodies measuring 5.0 x 0.4 x 0.1 cm and 7.5 x 0.5 x 0.4 cm, consistent with wooden splinters. No soft tissue is present. No sections are submitted, gross only. /07/27/2017 [place]/07/27/2017
== END 2017-07-25 18:50 | disposition left against medical advice (07) ==
LOC: FER 13:47 → FM/S 19:03
PROVIDERS: ADMIT Internal Medicine; ATTEND Nurse Practitioner Family
PROC: 0JC80ZZ Extirpation of Matter from Abdomen Subcutaneous Tissue and Fascia, Open Approach (ICD-10-PCS; principal; 2017-07-24)
DX: S31.122A Laceration of abdominal wall with foreign body, epigastric region without penetration into peritoneal cavity, initial encounter (principal); S80.212A Abrasion, left knee, initial encounter; S70.311A Abrasion, right thigh, initial encounter; S30.811A Abrasion of abdominal wall, initial encounter; I10 Essential (primary) hypertension; I48.0 Paroxysmal atrial fibrillation; E78.5 Hyperlipidemia, unspecified; N17.9 Acute kidney failure, unspecified; K21.9 Gastro-esophageal reflux disease without esophagitis; J45.909 Unspecified asthma, uncomplicated; Z79.82 Long term (current) use of aspirin; W11.XXXA Fall on and from ladder, initial encounter; Y93.89 Activity, other specified; Y92.89 Other specified places as the place of occurrence of the external cause
CPT/HCPCS: 36415; 71046-TC-FY; 74176-TC; 80048; 80053; 83735; 84100; 85025; 85610; 86850; 86900; 86901; 87070; 87205; 93005; 94760; 99285-25; G0378; J0131

== ENCOUNTER 2017-09-22 11:17 | Emergency (ER) | payer OTHER, BC ==
[2017-09-22 11:39] VITALS: BP 122/79; PULSE 65; TEMP 98.7; BMI 30.8
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
[2017-09-22] MEDS ORDERED: IBUPROFEN 600 MG TABLET (FP) PO ONE ×2 (11:47→11:48)
== END 2017-09-22 11:57 | disposition home or self-care (01) ==
LOC: JERFT 11:17
DX: S16.1XXA Strain of muscle, fascia and tendon at neck level, initial encounter (principal); M54.5 Low back pain; V43.62XA Car passenger injured in collision with other type car in traffic accident, initial encounter; Y92.414 Local residential or business street as the place of occurrence of the external cause; Y99.0 Civilian activity done for income or pay; Y93.89 Activity, other specified; I48.91 Unspecified atrial fibrillation; I10 Essential (primary) hypertension; E78.00 Pure hypercholesterolemia, unspecified; J45.909 Unspecified asthma, uncomplicated
CPT/HCPCS: 99281-25

== ENCOUNTER 2019-04-02 11:07 | Emergency (ER) | payer OTHER, BC ==
[2019-04-02 11:31] VITALS: BP 132/84; PULSE 90; TEMP 97.5; BMI 15.6
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
== END 2019-04-02 12:05 | disposition home or self-care (01) ==
LOC: JERFT 11:07
DX: S00.412A Abrasion of left ear, initial encounter (principal); Y35.811A Legal intervention involving manhandling, law enforcement official injured, initial encounter; Y93.89 Activity, other specified; Y92.89 Other specified places as the place of occurrence of the external cause; Y99.0 Civilian activity done for income or pay; I10 Essential (primary) hypertension; E78.00 Pure hypercholesterolemia, unspecified; I48.91 Unspecified atrial fibrillation; J45.909 Unspecified asthma, uncomplicated
CPT/HCPCS: 99282-25

== ENCOUNTER 2019-10-15 09:45 | Emergency (ER) | payer BC, OTHER ==
[2019-10-15 09:50] VITALS: BP 108/76; PULSE 92; TEMP 98.3; BMI 30.2
[2019-10-15] MEDS ORDERED: BACITRACIN 15 GM TUBE TOPICAL OINTMENT ONE (10:25)
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
== END 2019-10-15 10:32 | disposition home or self-care (01) ==
LOC: JERFT 09:45
DX: S80.812A Abrasion, left lower leg, initial encounter (principal); Y99.8 Other external cause status
CPT/HCPCS: 99282-25

== ENCOUNTER 2020-04-11 17:49 | Emergency (ER) | payer BC, OTHER ==
[2020-04-11 18:02] VITALS: BP 116/88; PULSE 90; TEMP 98.3; BMI 30.8
[2020-04-11] MEDS ORDERED: AMOX TR/POT CLAV 875MG/125MG TABLETS (FP) PO ONE (18:08)
[2020-04-11] MEDS ORDERED: AMOX TR/POT CLAV 875MG/125MG TABLETS (FP) ONE (18:10)
[2020-04-11] MEDS ORDERED: ACETAMINOPHEN 325 MG TABLET (FP) PO ONE (18:12)
[2020-04-11] MEDS ORDERED: ACETAMINOPHEN 325 MG TABLET (FP) ONE (18:14)
== END 2020-04-11 19:07 | disposition home or self-care (01) ==
LOC: FER 17:49
DX: M79.641 Pain in right hand (principal)
CPT/HCPCS: 73110-TC-RT-FY; 73130-TC-RT-FY; 99283-25

== ENCOUNTER 2022-12-15 08:09 | Emergency (ER) | payer OTHER ==
[2022-12-15 08:32] VITALS: BP 125/91; PULSE 68; RESP 18; TEMP 97.8
[2022-12-15] MEDS ORDERED: IBUPROFEN 400 MG TABLET (FP) PO ONE ×2 (08:43→08:47)
== END 2022-12-15 09:41 | disposition home or self-care (01) ==
LOC: FER 08:09
DX: M25.561 Pain in right knee (principal); X50.1XXA Overexertion from prolonged static or awkward postures, initial encounter; Y99.0 Civilian activity done for income or pay
CPT/HCPCS: 73560-TC-RT-FY; 99283-25